=== PATIENT | male | born 1940 | race Hispanic/Latino ===

== ENCOUNTER 2018-07-10 11:49 | Emergency (ER) | payer MEDICARE ==
[~2018-07-10] VITALS: Ht 172.7 cm; Wt 90.0 kg
[~2018-07-10 11:49] MED LIST: AMLODIPINE5 MG PO; AVELOX400 MG PO; FOLIC ACID1 MG PO; INDAPAMIDE2.5 MG PO; NICOTINE T21 MG/PATC TD; NO; NORVASC2.5 MG PO; PENICILLIN V P500 MG PO; PRILOSEC40 MG PO; TAB-A-VITE W/1 COMBO PO; ZOCOR20 M1 PO
[2018-07-10] MEDS ORDERED: PRAVASTATIN20 MG PO (12:41)
[2018-07-10] MEDS ORDERED: LOSARTAN POTASS50 MG PO (12:41)
[2018-07-10 12:52] LABS: IMMATURE GRANULOCYTES 0.1 % (0.0-5.0); MEAN CORPUSCULAR HGB 32.1 pG CALC (26.0-32.0); MEAN CORPUSCULAR HGB CONC 33.9 g/L CALC (32.0-36.0); NEUT# 4.45 thou/uL (1.82-7.42); RED BLOOD COUNT 5.29 mill/uL (4.70-6.10); RED CELL DISTRI WIDTH 13.7 % (11.5-15.5)
[2018-07-10 12:56] LABS: ALKALINE PHOSPHATASE 81 u/l (38-126); BILIRUBIN, TOTAL 0.7 mg/dL (0.0-1.4); BUN 13 mg/dL (8-23); BUN/CREATININE RATIO 15 (12-20 (CALC)); CARBON DIOXIDE 25 mmol/l (22-30); CREATININE 0.9 mg/dL (0.7-1.3); GFR > 60 ML/MIN (>=60 (CALC)); GFR FOR AFR.AMER. > 60 ML/MIN (>=60 (CALC)); POTASSIUM 4.2 mmol/l (3.5-5.1); SGOT/AST 30 u/l (19-48); TOTAL PROTEIN 7.9 g/dL (6.3-8.2)
[2018-07-10 13:02] LABS: HEMATOCRIT 50.1 % (39.0-50.0); MEAN CELL VOLUME 94.7 fL CALC (80.0-100.0)
[2018-07-10 13:09] LABS: ALBUMIN 4.3 g/dL (3.2-5.0); ANION GAP 15 (6-22 (CALC)); CHLORIDE 103 mmol/l (95-108); SODIUM 139 mmol/l (137-146)
[2018-07-10 13:46] VITALS: BP 163/78
== END 2018-07-10 13:50 | disposition home or self-care (01) ==
LOC: ED 11:49
DX: I10 Essential (primary) hypertension (principal); E78.00 Pure hypercholesterolemia, unspecified; F17.290 Nicotine dependence, other tobacco product, uncomplicated

== ENCOUNTER 2021-07-04 13:45 | Observation (INO) | payer MEDICARE ==
[~2021-07-04] VITALS: Ht 172.7 cm; Wt 70.0 kg
[~2021-07-04 13:45] MED LIST changes: +LOSARTAN POTASS50 MG PO; +PRAVASTATIN20 MG PO
--- NOTE | 2021-07-04 13:50 | NUR ---
PATIENT TO ROOM VIA EMS AND PHYSICIAN NOTIFIED OF STATUS
[2021-07-04 15:19] LABS: HEMATOCRIT 44.4 % (39.0-50.0); IMMATURE GRANULOCYTES 0.3 % (0.0-5.0); MEAN CELL VOLUME 93.9 fL CALC (80.0-100.0); NEUT# 8.09 thou/uL (1.82-7.42); RED BLOOD COUNT 4.73 mill/uL (4.70-6.10); RED CELL DISTRI WIDTH 16.1 % (11.5-15.5)
[2021-07-04 15:21] LABS: HEMOGLOBIN 14.2 g/dl (14.0-18.0)
[2021-07-04 15:28] LABS: ACT PARTIAL THROMBO TIME 24.8 SECONDS (20.0-32.5); PROTHROMBIN TIME 10.2 SECONDS (9.0-12.5)
[2021-07-04 15:29] LABS: ALBUMIN 3.8 g/dL (3.2-5.0); ALKALINE PHOSPHATASE 77 u/l (38-126); ANION GAP 10 (6-22 (CALC)); BILIRUBIN, TOTAL 0.5 mg/dL (0.0-1.4); BUN 13 mg/dL (8-23); BUN/CREATININE RATIO 9 (12-20 (CALC)); CARBON DIOXIDE 28 mmol/l (22-30); CHLORIDE 103 mmol/l (95-108); CREATININE 1.4 mg/dL (0.7-1.3); ETHYL ALCOHOL 0 mg/dl (0-30); GFR 49 ML/MIN (>=60 (CALC)); GFR FOR AFR.AMER. 59 ML/MIN (>=60 (CALC)); LIPASE 131 u/l (23-300); POTASSIUM 4.3 mmol/l (3.5-5.1); SGOT/AST 27 u/l (19-48); SODIUM 137 mmol/l (137-146); TOTAL PROTEIN 7.6 g/dL (6.3-8.2)
[2021-07-04 16:30] LABS: URINE BILIRUBIN - DIPSTICK NEGATIVE (NEGATIVE); URINE BLOOD DIPSTICK NEGATIVE (NEGATIVE); URINE COLOR YELLOW; URINE GLUCOSE - DIPSTICK NEGATIVE (NEGATIVE); URINE KETONE NEGATIVE (NEGATIVE); URINE LEUK ESTERASE NEGATIVE (NEGATIVE); URINE PROTEIN - DIPSTICK TRACE mg/dL (NEG-TRACE); URINE UROBILINOGEN - DIPSTICK 0.2 E.U./dL (0.2)
[2021-07-04 16:31] LABS: URINE NITRITE - DIPSTICK POSITIVE (Negative)
[2021-07-04 16:36] LABS: URINE BACTERIA RARE hpf; URINE RBC 0-2 RBC/hpf (0-5); URINE WBC 0-2 WBC/hpf (0-5)
--- NOTE | 2021-07-04 16:48 | NUR ---
ORTHOSTATIC VITALS ON ARRIVAL: LIE 66 HR, 97% SATS 140/63 BP SIT 65 HR, 97%, 149/69 CARSON STAND 78 HR, 99%, 137/64 BP STAND 5 MINUTES 73 HR, 98%, 135/64
--- NOTE | 2021-07-04 17:58 | NUR ---
REPORT CALLED TO DIOGENES FOR ROOM 280
--- NOTE | 2021-07-04 18:08 | NUR ---
PATIENT TO ROOM 280 VIA WHEELCHAIR PATIENT ABLE TO TRANSFER SELF TO BED WITH MINIMAL ASSISTANCE. ORIENTED PATIENT TO ROOM AND UNIT. CALL LIGHT IN REACH. WILL CONTINUE TOMONTIOR
[2021-07-04 18:14] VITALS: BP 148/76
--- NOTE | 2021-07-04 19:00 | NUR ---
REPORT RECEIVED BY DAYSHIFT NURSE VIA SBAR FORMAT, PATIENT IS A NEW ADMISSION, WILL DO HIS ADMISSION. FOUND PATIENT STABLE RESTING IN BED, NO PAIN OR NEEDS REPORTED.
[2021-07-04 20:00] VITALS: BP 146/67
--- NOTE | 2021-07-04 20:14 | NUR ---
PT C/O HEADACHE, FLUIDS INFUSING 1/2NS AT 75ML/HR TO 18G LFA, EMS SITE. TYLENOL GIVEN, WILL REASSESS HEADACHE IN HALF HOUR. VSS, CALL SIMS AT REACH.
--- NOTE | 2021-07-04 20:38 | NUR ---
PT STATES HEADACHE IS BETTER BUT STILL THERE MOSTLY IN THE FRONTAL SIDE RADIATES TO LEFT EYE. DENIES ANY FEELING OF TINGLING OR NUMBNESS SENSATION. EDUCATED ABOUT CALLING FOR ASSISTANCE IF IT GETS WORSE, WILL FOLLOW UP WITH REASSESSMENT. CALL SIMS AT REACH.
[2021-07-05] VITALS: BP 131/55
[2021-07-05 00:25] VITALS: BP 153/69
--- NOTE | 2021-07-05 00:44 | NUR ---
PATIENT DENIES ANY NEEDS OR PAIN, RESTING IN BED WITH EYES CLOSED, WILL MONITOR CLOSELY. CALL SIMS AT REACH. REINFORCED SAFETY MEASURES.
--- NOTE | 2021-07-05 03:25 | NUR ---
PER ER TELEMETRY MONITORING, PATIENT HR 41 SUSTAINING AT THIS TIME; ASYMPTOMATIC SB. FOUND PT RESTING IN BED WITH EYES CLOSED, AROUSES TO STIMULI, HR 66 RECHECK AT BEDSIDE, O2 94% ON 2L VIA NC.
[2021-07-05 04:00] VITALS: BP 156/72
--- NOTE | 2021-07-05 05:21 | NUR ---
RESTING IN BED WITH EYES CLOSED, RESP ARE EVEN AND UNLABORED, CALL SIMS AT REACH, SUPPLIES NEEDED AT BEDSIDE TABLE.
[2021-07-05 05:44] LABS: HEMATOCRIT 42.3 % (39.0-50.0); HEMOGLOBIN 13.7 g/dl (14.0-18.0); IMMATURE GRANULOCYTES 0.1 % (0.0-5.0); MEAN CELL VOLUME 93.6 fL CALC (80.0-100.0); MEAN CORPUSCULAR HGB 30.3 pG CALC (26.0-32.0); MEAN CORPUSCULAR HGB CONC 32.4 g/dL CAL (32.0-36.0); NEUT# 4.37 thou/uL (1.82-7.42); RED BLOOD COUNT 4.52 mill/uL (4.70-6.10); RED CELL DISTRI WIDTH 16.1 % (11.5-15.5)
[2021-07-05 05:58] LABS: ALBUMIN 3.3 g/dL (3.2-5.0); ALKALINE PHOSPHATASE 87 u/l (38-126); ANION GAP 9 (6-22 (CALC)); BILIRUBIN, TOTAL 0.6 mg/dL (0.0-1.4); BUN 14 mg/dL (8-23); BUN/CREATININE RATIO 13 (12-20 (CALC)); CARBON DIOXIDE 27 mmol/l (22-30); CHLORIDE 104 mmol/l (95-108); CREATININE 1.1 mg/dL (0.7-1.3); GFR > 60 ML/MIN (>=60 (CALC)); GFR FOR AFR.AMER. > 60 ML/MIN (>=60 (CALC)); POTASSIUM 4.1 mmol/l (3.5-5.1); SGOT/AST 25 u/l (19-48); SODIUM 135 mmol/l (137-146); TOTAL PROTEIN 6.5 g/dL (6.3-8.2)
[2021-07-05 07:15] VITALS: BP 140/68
[2021-07-05] MEDS ORDERED: BENICAR40 MG PO (08:06)
[2021-07-05] MEDS ORDERED: CRESTOR10 MG PO (08:07)
[2021-07-05] MEDS ORDERED: NORVASC5 M1 PO (08:07)
[2021-07-05 10:30] VITALS: BP 171/77
== END 2021-07-05 13:45 | disposition home or self-care (01) ==
LOC: ED 13:45 → ED-I 16:25 → MS2 17:24 → ED 17:24 → MS2 17:24
PROVIDERS: ADMIT Internal Medicine; ATTEND Internal Medicine
DX: R55 Syncope and collapse (principal); E86.0 Dehydration; N17.9 Acute kidney failure, unspecified; F10.10 Alcohol abuse, uncomplicated; I10 Essential (primary) hypertension; E78.5 Hyperlipidemia, unspecified; Z87.891 Personal history of nicotine dependence; Z20.822 Contact with and (suspected) exposure to COVID-19
CPT/HCPCS: J1650